=== PATIENT | female | born 1955 | race Caucasian/White ===

== ENCOUNTER 2019-06-24 22:06 | Emergency (ER) | payer MEDICARE, MEDICAID, SELFPAY ==
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
[2019-06-24 22:18] VITALS: BP 139/81; PULSE 99; RESP 16; TEMP 37; O2SAT 100
[2019-06-24] MEDS: LACTATED RINGERS 1,000 ML 999 ML IV CONT (22:34)
[2019-06-24 22:47] LABS: Eosinophils Absolute Auto 0.1 K/mm3 (0-0.3); Eosinophils Percent Auto 2.3 % (0-4.4); Hematocrit 45.6 % (37.0-47.0); Hemoglobin 14.8 g/dL (12.0-15.0); Immature Granulocyte Absolute 0.01 K/mm3 (0.00-0.031); Immature Granulocyte Percent A 0.3 % (0-0.5); Lymphocytes Percent Auto 46.3 % (18.3-44.2); Mean Corpuscular HGB Conc 32.5 g/dl (32-36); Mean Corpuscular Volume 89.2 fl (80-100); Mean Platelet Volume 8.7 fl (7.4-10.4); Monocytes Absolute Auto 0.3 K/mm3 (0.1-0.6); Monocytes Percent Auto 7.2 % (2.6-8.5); Neutrophils Absolute Auto 1.7 K/mm3 (1.3-6.7); Neutrophils Percent Auto 42.9 % (45.5-73.1); Platelet Count Result 282 k/mm3 (150-375); Red Blood Count 5.11 M/mm3 (4.2-5.4); Red Cell Distribution Width 15.8 % (11.5-14.5); White Blood Count 3.9 K/mm3 (4.5-10.0)
[2019-06-24 22:49] LABS: Add Urine Microscopic? YES; Appearance Urine Clear (Clear); Bilirubin Urine Negative (Negative); Blood Urine 1+ (Negative); Color Urine Yellow (Yellow); Glucose Urine UA Negative (Negative); Ketones Urine Negative (Negative); Leukocyte Esterase Ur Negative LEU/UL (Negative); Mucus Urine Rare /lpf; Nitrate Urine Negative (Negative); Protein Urine Negative (Negative); RBC Urine 0-2 /hpf (0-2); Specific Grav Ur 1.011 (1.001-1.035); Squamous Epithelial Cell Urine Many /hpf (Few); Urobilinogen Urine Negative mg/dL (<2.0); WBC Urine 0-3 /hpf
[2019-06-24 23:03] LABS: Alanine Aminotransferase 198 U/L (4-35); Albumin Level 4.1 g/dL (3.5-5.1); Alkaline Phosphatase 79 U/L (38-126); Aspartate Amino Transferase 328 U/L (14-36); Bilirubin,Total 0.5 mg/dL (0.2-1.3); Blood Urea Nitrogen 8 mg/dL (7-17); Calcium 7.9 mg/dL (8.4-10.2); Carbon Dioxide 25 mmol/L (22-30); Chloride 104 mmol/L (98-107); Estimated Glomerular Filt Rate > 60; Glucose 83 mg/dL (65-105); Magnesium 1.9 mg/dL (1.6-2.3); Potassium 3.8 mmol/L (3.4-5.0); Sodium 143 mmol/L (137-145)
[2019-06-24 23:05] LABS: Amphetamine Screen Urine Negative (Negative); Barbiturate Screen Urine Negative (Negative); Benzodiazepines Screen Urine Negative (Negative); Cannabinoid Screen Urine Negative (Negative); Cocaine Screen Urine Negative (Negative); Methadone Screen Urine Negative (Negative); Opiate Screen Urine Negative (Negative); Phencyclidine Screen Urine Negative (Negative)
[2019-06-24 23:15] VITALS: BP 142/76; PULSE 63; RESP 18; O2SAT 99
[2019-06-24 23:32] LABS: Ethanol 462 mg/dL (<10)
[2019-06-25 00:02] VITALS: BP 134/76; PULSE 92; RESP 20; O2SAT 98
[2019-06-25 01:02] VITALS: BP 136/79; PULSE 81; RESP 19; O2SAT 100
--- NOTE | 2019-06-25 01:58 | PC.NURSE ---
0142: Nydia called to check on patient and said she would be here within the hour to pick her up.
[2019-06-25 02:00] VITALS: BP 135/85; PULSE 85; RESP 18; TEMP 37; O2SAT 100
--- NOTE | 2019-07-01 06:09 | PC.NURSE ---
LATE ENTRY This note is being entered to document information to the patient's record. The following information was omitted on 06/24/2019, LR STOPPED AT 6710.
== END 2019-06-25 02:30 | disposition home or self-care (01) ==
PROVIDERS: Emergency Provider Emergency Medicine
DX: F10.129 Alcohol abuse with intoxication, unspecified (principal); Y90.8 Blood alcohol level of 240 mg/100 ml or more; I10 Essential (primary) hypertension; M81.0 Age-related osteoporosis without current pathological fracture; H40.9 Unspecified glaucoma; M19.90 Unspecified osteoarthritis, unspecified site; F32.9 Major depressive disorder, single episode, unspecified; F41.9 Anxiety disorder, unspecified; Z89.511 Acquired absence of right leg below knee; V49.9XXS Car occupant (driver) (passenger) injured in unspecified traffic accident, sequela
CPT/HCPCS: 36415; 51701; 80053; 80307; 81001; 83735; 85025; 96360; 99283; J7120

== ENCOUNTER 2019-06-27 01:18 | Emergency (ER) | payer MEDICARE, MEDICAID, SELFPAY ==
[2019-06-27 01:20] VITALS: BP 136/80; PULSE 92; RESP 18; TEMP 36.6; O2SAT 98
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
[2019-06-27 02:35] LABS: Basophils Absolute Auto 0.1 K/mm3 (0.0-0.1); Basophils Percent Auto 0.9 % (0.2-1.2); Eosinophils Absolute Auto 0.1 K/mm3 (0-0.3); Eosinophils Percent Auto 1.4 % (0-4.4); Hematocrit 43.7 % (37.0-47.0); Hemoglobin 14.1 g/dL (12.0-15.0); Immature Granulocyte Absolute 0.03 K/mm3 (0.00-0.031); Immature Granulocyte Percent A 0.5 % (0-0.5); Lymphocytes Absolute Auto 1.18 K/mm3 (0.9-3.2); Lymphocytes Percent Auto 17.7 % (18.3-44.2); Mean Corpuscular HGB Conc 32.3 g/dl (32-36); Mean Corpuscular Hemoglobin 28.9 pg (26-34); Mean Corpuscular Volume 89.5 fl (80-100); Mean Platelet Volume 9.2 fl (7.4-10.4); Monocytes Absolute Auto 0.5 K/mm3 (0.1-0.6); Monocytes Percent Auto 6.9 % (2.6-8.5); Neutrophils Absolute Auto 4.8 K/mm3 (1.3-6.7); Neutrophils Percent Auto 72.6 % (45.5-73.1); Platelet Count Result 246 k/mm3 (150-375); Red Blood Count 4.88 M/mm3 (4.2-5.4); Red Cell Distribution Width 15.9 % (11.5-14.5); White Blood Count 6.7 K/mm3 (4.5-10.0)
[2019-06-27] MEDS: SODIUM CHLORIDE 0.9% IV 1,000 ML 999 ML IV CONT (02:42)
[2019-06-27 02:44] VITALS: BP 127/75; PULSE 88; RESP 16; O2SAT 97
[2019-06-27 02:48] LABS: Blood Urea Nitrogen 8 mg/dL (7-17); Carbon Dioxide 28 mmol/L (22-30); Chloride 99 mmol/L (98-107); Estimated Glomerular Filt Rate > 60; Glucose 152 mg/dL (65-105); Potassium 3.3 mmol/L (3.4-5.0); Sodium 143 mmol/L (137-145)
[2019-06-27 03:02] LABS: Ethanol 481 mg/dL (<10)
--- NOTE | 2019-06-27 03:21 | PC.NURSE ---
assumed care of pt at this time, received report from mildred mitchell
[2019-06-27 04:00] VITALS: BP 118/75; PULSE 80; RESP 16; O2SAT 99
[2019-06-27 05:02] VITALS: BP 141/86; PULSE 86; RESP 16; O2SAT 99
[2019-06-27 05:32] VITALS: BP 141/79; PULSE 75; RESP 20; O2SAT 99
[2019-06-27 06:50] VITALS: BP 128/80; PULSE 70; RESP 18; O2SAT 99
--- NOTE | 2019-06-27 07:02 | PC.NURSE ---
this rn called room service for tray at this time.
[2019-06-27 15:22] LABS: Ethanol 79 mg/dL (<10)
== END 2019-06-27 16:46 | disposition home or self-care (01) ==
PROVIDERS: Emergency Medicine; Emergency Provider Emergency Medicine
DX: F10.120 Alcohol abuse with intoxication, uncomplicated (principal); Y90.8 Blood alcohol level of 240 mg/100 ml or more; Z89.511 Acquired absence of right leg below knee; V49.9XXS Car occupant (driver) (passenger) injured in unspecified traffic accident, sequela
CPT/HCPCS: 36415; 80048; 80307; 85025; 96360; 99283; J7030

== ENCOUNTER 2019-08-05 03:15 | Emergency (ER) | payer MEDICARE, SELFPAY ==
[2019-08-05] VITALS (24 sets, daily range): BP systolic 79–154; BP diastolic 41–103; PULSE 64–95; RESP 0–28; TEMP 36.6; O2SAT 98–100
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
[2019-08-05 03:56] LABS: Estimated Glomerular Filt Rate 45
[2019-08-05 03:57] LABS: Basophils Absolute Auto 0.1 K/mm3 (0.0-0.1); Basophils Percent Auto 1.2 % (0.2-1.2); Eosinophils Absolute Auto 0.1 K/mm3 (0-0.3); Eosinophils Percent Auto 1.5 % (0-4.4); Hematocrit 34.7 % (37.0-47.0); Immature Granulocyte Absolute 0.06 K/mm3 (0.00-0.031); Lymphocytes Absolute Auto 1.35 K/mm3 (0.9-3.2); Lymphocytes Percent Auto 22.5 % (18.3-44.2); Mean Corpuscular HGB Conc 31.7 g/dl (32-36); Mean Corpuscular Hemoglobin 30.5 pg (26-34); Mean Corpuscular Volume 96.1 fl (80-100); Mean Platelet Volume 10.2 fl (7.4-10.4); Monocytes Absolute Auto 0.7 K/mm3 (0.1-0.6); Monocytes Percent Auto 12.3 % (2.6-8.5); Neutrophils Absolute Auto 3.7 K/mm3 (1.3-6.7); Neutrophils Percent Auto 61.5 % (45.5-73.1); Platelet Count Result 584 k/mm3 (150-375); Red Blood Count 3.61 M/mm3 (4.2-5.4); Red Cell Distribution Width 18.1 % (11.5-14.5)
[2019-08-05 04:16] LABS: Add Urine Microscopic? NO; Appearance Urine Clear (Clear); Bilirubin Urine Negative (Negative); Blood Urine Negative (Negative); Color Urine Colorless (Yellow); Glucose Urine UA Negative (Negative); Ketones Urine Negative (Negative); Leukocyte Esterase Ur Negative LEU/UL (Negative); Nitrate Urine Negative (Negative); Protein Urine Negative (Negative); Urobilinogen Urine Negative mg/dL (<2.0)
[2019-08-05 04:23] LABS: Specific Grav Ur 1.002 (1.001-1.035)
[2019-08-05 04:30] LABS: Amphetamine Screen Urine Negative (Negative); Barbiturate Screen Urine Negative (Negative); Benzodiazepines Screen Urine Negative (Negative); Cannabinoid Screen Urine Negative (Negative); Cocaine Screen Urine Negative (Negative); Methadone Screen Urine Negative (Negative); Opiate Screen Urine Negative (Negative); Phencyclidine Screen Urine Negative (Negative)
[2019-08-05 04:32] LABS: Ethanol 390 mg/dL (<10)
[2019-08-05 04:33] LABS: INR 0.9
[2019-08-05 04:48] LABS: Alanine Aminotransferase 77 U/L (4-35); Albumin Level 3.2 g/dL (3.5-5.1); Alkaline Phosphatase 70 U/L (38-126); Aspartate Amino Transferase 113 U/L (14-36); Bilirubin,Total 0.1 mg/dL (0.2-1.3); Blood Urea Nitrogen 9 mg/dL (7-17); Calcium 8.7 mg/dL (8.4-10.2); Carbon Dioxide 25 mmol/L (22-30); Chloride 107 mmol/L (98-107); Estimated Glomerular Filt Rate > 60; Glucose 90 mg/dL (65-105); Potassium 2.7 mmol/L (3.4-5.0); Sodium 142 mmol/L (137-145)
[2019-08-05] MEDS: KCL 20 MEQ/D5/0.45% SOD CHL 1,000 ML 125 ML IV CONT (05:32)
[2019-08-05] MEDS: SODIUM CHLORIDE 0.9% IV 1,000 ML 999 ML IV CONT (05:42)
--- NOTE | 2019-08-05 09:15 | PC.NURSE ---
Thiamine IVF opened wide per verbal order Dr. Causey.
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
== END 2019-08-05 11:43 | disposition home or self-care (01) ==
PROVIDERS: Emergency Medicine; Emergency Provider Emergency Medicine
DX: F10.129 Alcohol abuse with intoxication, unspecified (principal); S22.32XA Fracture of one rib, left side, initial encounter for closed fracture; M19.90 Unspecified osteoarthritis, unspecified site; G89.4 Chronic pain syndrome; H40.9 Unspecified glaucoma; I10 Essential (primary) hypertension; M81.0 Age-related osteoporosis without current pathological fracture; Z89.511 Acquired absence of right leg below knee; Y90.8 Blood alcohol level of 240 mg/100 ml or more; Y00.XXXA Assault by blunt object, initial encounter
CPT/HCPCS: 36415; 51701; 70450; 70486; 71260; 72125; 80053; 80307; 81003; 85025; 85610; 85730; 96365; 96366; 96368; 99284; J3411; J3475; J3480; J7030; J7042; Q9967

== ENCOUNTER 2019-08-30 18:38 | Emergency (ER) | payer MEDICARE, SELFPAY ==
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
[2019-08-30 18:42] VITALS: BP 175/87; PULSE 102; RESP 22; TEMP 36.6; O2SAT 99
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
[2019-08-30] MEDS: MORPHINE SULFATE 4 MG/ML INJ IV PUSH ×2 (19:27→20:42)
[2019-08-30] MEDS: SODIUM CHLORIDE 0.9% IV 1,000 ML 999 ML IV CONT (19:27)
[2019-08-30 19:30] LABS: Basophils Absolute Auto 0.1 K/mm3 (0.0-0.1); Basophils Percent Auto 0.6 % (0.2-1.2); Eosinophils Absolute Auto 0.1 K/mm3 (0-0.3); Eosinophils Percent Auto 0.4 % (0-4.4); Hematocrit 33.8 % (37.0-47.0); Hemoglobin 10.3 g/dL (12.0-15.0); Immature Granulocyte Absolute 0.07 K/mm3 (0.00-0.031); Immature Granulocyte Percent A 0.5 % (0-0.5); Lymphocytes Absolute Auto 1.12 K/mm3 (0.9-3.2); Lymphocytes Percent Auto 7.6 % (18.3-44.2); Mean Corpuscular HGB Conc 30.5 g/dl (32-36); Mean Corpuscular Hemoglobin 26.8 pg (26-34); Mean Platelet Volume 10.2 fl (7.4-10.4); Monocytes Absolute Auto 1.4 K/mm3 (0.1-0.6); Monocytes Percent Auto 9.5 % (2.6-8.5); Neutrophils Percent Auto 81.4 % (45.5-73.1); Platelet Count Result 573 k/mm3 (150-375); Red Blood Count 3.84 M/mm3 (4.2-5.4); Red Cell Distribution Width 17.3 % (11.5-14.5); White Blood Count 14.7 K/mm3 (4.5-10.0)
[2019-08-30 19:59] LABS: Add Urine Microscopic? YES; Appearance Urine Clear (Clear); Bacteria Urine 1+ /hpf; Bilirubin Urine Negative (Negative); Blood Urine 1+ (Negative); Color Urine Straw (Yellow); Glucose Urine UA Negative (Negative); Ketones Urine Negative (Negative); Leukocyte Esterase Ur Negative LEU/UL (Negative); Nitrate Urine Negative (Negative); Protein Urine Negative (Negative); RBC Urine 0-2 /hpf (0-2); Specific Grav Ur 1.005 (1.001-1.035); Urobilinogen Urine Negative mg/dL (<2.0)
[2019-08-30 20:13] LABS: Amphetamine Screen Urine Negative (Negative); Barbiturate Screen Urine Negative (Negative); Benzodiazepines Screen Urine Negative (Negative); Cannabinoid Screen Urine Negative (Negative); Cocaine Screen Urine Negative (Negative); Methadone Screen Urine Negative (Negative); Opiate Screen Urine Positive (Negative); Phencyclidine Screen Urine Negative (Negative)
[2019-08-30 20:33] LABS: Alanine Aminotransferase 22 U/L (4-35); Albumin Level 3.8 g/dL (3.5-5.1); Alkaline Phosphatase 77 U/L (38-126); Aspartate Amino Transferase 50 U/L (14-36); Bilirubin,Total 0.6 mg/dL (0.2-1.3); Blood Urea Nitrogen 6 mg/dL (7-17); Calcium 9.2 mg/dL (8.4-10.2); Carbon Dioxide 24 mmol/L (22-30); Chloride 109 mmol/L (98-107); Estimated CRCL calculation 70 ml/min; Estimated Glomerular Filt Rate > 60; Glucose 97 mg/dL (65-105); Potassium 3.8 mmol/L (3.4-5.0); Sodium 141 mmol/L (137-145)
[2019-08-30 20:35] VITALS: BP 166/70; PULSE 107; RESP 21; O2SAT 94
[2019-08-30 22:44] VITALS: BP 164/93; PULSE 114; RESP 20; O2SAT 99
== END 2019-08-30 22:46 | disposition home or self-care (01) ==
PROVIDERS: Emergency Provider Emergency Medicine
DX: S42.022A Displaced fracture of shaft of left clavicle, initial encounter for closed fracture (principal); K04.7 Periapical abscess without sinus; S00.83XA Contusion of other part of head, initial encounter; S00.12XA Contusion of left eyelid and periocular area, initial encounter; S00.11XA Contusion of right eyelid and periocular area, initial encounter; S00.531A Contusion of lip, initial encounter; Z89.511 Acquired absence of right leg below knee; M47.812 Spondylosis without myelopathy or radiculopathy, cervical region; Y04.2XXA Assault by strike against or bumped into by another person, initial encounter; Y00.XXXA Assault by blunt object, initial encounter
CPT/HCPCS: 36415; 51701; 70450; 70486; 71045; 72125; 80053; 80307; 81001; 84484; 85025; 87804; 96361; 96374; 96376; 99284; A4565; A9270; J2270; J7030

== ENCOUNTER 2020-04-19 15:46 | Inpatient (IN) | payer MEDICARE, MEDICAID, SELFPAY ==
--- NOTE | ~2020-04-19 | XR_ITS ---
EXAMINATION: XR surgery orthopedic INDICATION: ORIF of the left ankle TECHNIQUE: Seven intraoperative fluoroscopic images are submitted for review. Total fluoroscopic time is 107.2 seconds. COMPARISON: Left ankle radiograph dated 04/19/2020 FINDINGS: Fluoroscopic images demonstrate screw fixation of the medial malleolus and plate and screw fixation of the distal fibula. Alignment is anatomic. Please refer to procedure note for full details . IMPRESSION: 1. ORIF of the left ankle. Please refer to procedure note for full details. Reviewed, dictated and finalized at location A. ING ANALYST
--- NOTE | ~2020-04-19 | XR_ITS ---
EXAMINATION: XR knee LT min 4V DATE: 04/19/2020 17:30 INDICATION: Left knee pain TECHNIQUE: Four views of the left knee were obtained. COMPARISON: None. FINDINGS: Alignment is normal. No fracture or osteochondral lesion. There is mild tricompartmental os teoarthritis characterized by tiny marginal osteophytes. A small knee joint effusion is present. Soft tissues are unremarkable. IMPRESSION: 1. Small knee joint effusion without evidence of acute osseous abnormality. Reviewed, dictated and finalized at location A. OR'S ASSISTANT
--- NOTE | ~2020-04-19 | XR_ITS ---
EXAMINATION: XR ankle LT min 3V DATE: 04/19/2020 17:30 INDICATION: Left ankle pain, initial encounter TECHNIQUE: Anteroposterior, lateral, mortise, and additional oblique view of the ankle were obtained. COMPARISON: None. FINDINGS: There is an acute, traumatic, oblique fracture of the distal fibula extending to the level of the tibial plafond. There is a transverse fracture of the medial malleolus at the level of the tib ial plafond. An avulsion is noted at the tip of the lateral malleolus. The talus and distal fibular f racture fragment demonstrates approximately 9 mm of lateral subluxation with respect to the distal ti onelia. No additional fracture is identified. Ankle soft tissue swelling is present. IMPRESSION: 1. Fractures of the distal tibia and fibula as detailed above with tibiotalar subluxation. Reviewed, dictated and finalized at location A. COPY EXAMINER IMPRESSION: 1. Fractures of the distal tibia and fibula as detailed above with tibiotalar s ubluxation.
[2020-04-19 15:57] VITALS: BP 133/64; PULSE 83; RESP 17; TEMP 35.9; O2SAT 100
[2020-04-19] MEDS: HYDROcodone/acetaminophen (*CRX) 5-325 MG TABLET 1 TAB PO (18:35)
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
[2020-04-19 20:58] LABS: Mean Platelet Volume 10.2 fl (7.4-10.4); Platelet Count Result 288 k/mm3 (150-375)
--- NOTE | 2020-04-19 21:23 | ADMGEN ---
This patient, Jenna Coles, was admitted to 2 Medical Room 240-01. Patient/family oriented to hospital policies and general routines including ID bracelet, bed and alarms, visiting hours, pain management, procedures, bathroom and other care routines, personal items, smoking policy, room service/diet, and visiting hours. Information on how to activate the Rapid Response Team has been discussed. Patient/Family are encouraged to report perceived risks to care and to ask questions if they do not understand what they are told or what they should do.
[2020-04-19] MEDS: SODIUM CHLORIDE 0.45% 1,000 ML 100 ML IV CONT (21:29)
[2020-04-19] MEDS: ENOXAPARIN 40 MG/0.4 ML SYRINGE SUB-Q (21:34)
[2020-04-19 21:36] VITALS: BMI 22.1
[2020-04-19 21:37] VITALS: BP 118/66; PULSE 78; RESP 20; TEMP 36.5; O2SAT 96
[2020-04-19 21:43] VITALS: BP 118/66; PULSE 78; RESP 20; TEMP 36.6; O2SAT 96
[2020-04-19] MEDS: MORPHINE SULFATE (*CRX) 2 MG/ML INJ IV PUSH (21:57)
[2020-04-20] VITALS (7 sets, daily range): BP systolic 92–110; BP diastolic 42–62; PULSE 64–70; RESP 18; TEMP 36.6–37.4; O2SAT 95–99
[2020-04-20] MEDS: DORZOLAMIDE HCL 2% OPHTH DROPS 1 DROP EACH EYE ×3 (00:44→20:04)
[2020-04-20] MEDS: LATANOPROST 0.005% OP SOLN 2.5 ML BTL 1 DROP RIGHT EYE ×2 (00:47→20:04)
[2020-04-20] MEDS: MORPHINE SULFATE (*CRX) 2 MG/ML INJ IV PUSH (02:10)
[2020-04-20] MEDS: HYDROcodone/acetaminophen (*CRX) 5-325 MG TABLET 1 TAB PO ×2 (03:21→07:13)
[2020-04-20 05:07] LABS: Basophils Absolute Auto 0.1 K/mm3 (0.0-0.1); Basophils Percent Auto 0.9 % (0.2-1.2); Eosinophils Absolute Auto 0.2 K/mm3 (0-0.3); Eosinophils Percent Auto 2.1 % (0-4.4); Hemoglobin 12.8 g/dL (12.0-15.0); Immature Granulocyte Absolute 0.02 K/mm3 (0.00-0.031); Immature Granulocyte Percent A 0.3 % (0-0.5); Lymphocytes Absolute Auto 3.27 K/mm3 (0.9-3.2); Mean Corpuscular HGB Conc 33.7 g/dl (32-36); Mean Corpuscular Hemoglobin 28.9 pg (26-34); Mean Corpuscular Volume 85.8 fl (80-100); Mean Platelet Volume 10.5 fl (7.4-10.4); Monocytes Absolute Auto 0.7 K/mm3 (0.1-0.6); Monocytes Percent Auto 9.5 % (2.6-8.5); Neutrophils Absolute Auto 3.4 K/mm3 (1.3-6.7); Neutrophils Percent Auto 44.2 % (45.5-73.1); Platelet Count Result 250 k/mm3 (150-375); Red Blood Count 4.43 M/mm3 (4.2-5.4); Red Cell Distribution Width 13.3 % (11.5-14.5); White Blood Count 7.6 K/mm3 (4.5-10.0)
[2020-04-20 05:22] LABS: Anion Gap 4 mmol/L (8-16); Blood Urea Nitrogen 12 mg/dL (7-17); Calcium 8.5 mg/dL (8.4-10.2); Carbon Dioxide 26 mmol/L (22-30); Chloride 106 mmol/L (98-107); Estimated CRCL calculation 53 ml/min; Estimated Glomerular Filt Rate > 60; Glucose 87 mg/dL (65-105); Potassium 3.5 mmol/L (3.4-5.0); Sodium 136 mmol/L (137-145)
[2020-04-20] MEDS: SODIUM CHLORIDE 0.45% 1,000 ML 100 ML IV CONT ×2 (07:08→17:53)
[2020-04-20] MEDS: FLUTICASONE PROPIONATE 0.05% NA SPR 16 GM BTL (*BKC) 1 SPRAY NASAL (08:42)
[2020-04-20] MEDS: FLUoxetine HCL 20 MG CAPSULE 40 MG PO (08:42)
[2020-04-20] MEDS: lisinopriL 20 MG TABLET PO (08:43)
[2020-04-20] MEDS: MORPHINE SULFATE (*CRX) 2 MG/ML INJ 1 MG IV PUSH (09:23)
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
[2020-04-20] MEDS: oxyCODONE/ACETAMINOPHEN (*CRX) 5-325 MG TABLET 2 TABLET PO (12:20)
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
[2020-04-20] MEDS: oxyCODONE/ACETAMINOPHEN (*CRX) 5-325 MG TABLET 1 TABLET PO ×2 (18:54→23:12)
[2020-04-20] MEDS: ENOXAPARIN 40 MG/0.4 ML SYRINGE SUB-Q (20:04)
[2020-04-21] MEDS: SODIUM CHLORIDE 0.45% 1,000 ML 100 ML IV CONT (03:04)
[2020-04-21] MEDS: oxyCODONE/ACETAMINOPHEN (*CRX) 5-325 MG TABLET 1 TABLET PO ×5 (03:09→21:58)
[2020-04-21 05:18] VITALS: BP 90/62; PULSE 61; RESP 18; TEMP 36.5; O2SAT 97
[2020-04-21 05:40] LABS: Hematocrit 34.4 % (37.0-47.0); Hemoglobin 11.4 g/dL (12.0-15.0); Mean Corpuscular HGB Conc 33.1 g/dl (32-36); Mean Corpuscular Hemoglobin 28.3 pg (26-34); Mean Corpuscular Volume 85.4 fl (80-100); Platelet Count Result 239 k/mm3 (150-375); Red Blood Count 4.03 M/mm3 (4.2-5.4); Red Cell Distribution Width 13.4 % (11.5-14.5); White Blood Count 7.9 K/mm3 (4.5-10.0)
[2020-04-21 05:47] LABS: Anion Gap 4 mmol/L (8-16); Blood Urea Nitrogen 10 mg/dL (7-17); Calcium 8.5 mg/dL (8.4-10.2); Carbon Dioxide 25 mmol/L (22-30); Chloride 107 mmol/L (98-107); Estimated CRCL calculation 53 ml/min; Estimated Glomerular Filt Rate > 60; Glucose 101 mg/dL (65-105); Potassium 3.4 mmol/L (3.4-5.0); Sodium 136 mmol/L (137-145)
[2020-04-21] MEDS: DORZOLAMIDE HCL 2% OPHTH DROPS 1 DROP EACH EYE ×2 (08:36→20:26)
[2020-04-21] MEDS: THERAPEUTIC MULTIVITAMINS/MINERALS TAB (*BKC) 1 TABLET PO (08:37)
[2020-04-21] MEDS: LORATADINE 10 MG TABLET PO (08:37)
[2020-04-21] MEDS: FLUoxetine HCL 20 MG CAPSULE 40 MG PO (08:37)
[2020-04-21] MEDS: FLUTICASONE PROPIONATE 0.05% NA SPR 16 GM BTL (*BKC) 1 SPRAY NASAL (08:38)
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
[2020-04-21] MEDS: polyethylene glycoL 3350 17 GM POWD.PACK PO (12:54)
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
[2020-04-21 14:00] VITALS: BP 106/60; PULSE 64; RESP 16; TEMP 37; O2SAT 100
[2020-04-21] MEDS: LATANOPROST 0.005% OP SOLN 2.5 ML BTL 1 DROP RIGHT EYE (20:25)
[2020-04-21] MEDS: DOCUSATE SODIUM 100 MG CAPSULE PO (20:26)
[2020-04-21] MEDS: ENOXAPARIN 40 MG/0.4 ML SYRINGE SUB-Q (20:26)
[2020-04-21 20:37] VITALS: BP 116/51; PULSE 74; RESP 20; TEMP 36.2; O2SAT 96
[2020-04-22] VITALS (15 sets, daily range): BP systolic 94–147; BP diastolic 57–86; PULSE 60–87; RESP 14–18; TEMP 36.3–37; O2SAT 94–100
[2020-04-22 05:46] LABS: Hematocrit 34.7 % (37.0-47.0); Hemoglobin 11.5 g/dL (12.0-15.0); Mean Corpuscular HGB Conc 33.1 g/dl (32-36); Mean Corpuscular Hemoglobin 28.2 pg (26-34); Mean Platelet Volume 11.3 fl (7.4-10.4); Platelet Count Result 220 k/mm3 (150-375); Red Blood Count 4.08 M/mm3 (4.2-5.4); Red Cell Distribution Width 13.4 % (11.5-14.5); White Blood Count 7.3 K/mm3 (4.5-10.0)
[2020-04-22 05:49] LABS: Anion Gap 5 mmol/L (8-16); Blood Urea Nitrogen 9 mg/dL (7-17); Calcium 8.7 mg/dL (8.4-10.2); Carbon Dioxide 26 mmol/L (22-30); Chloride 107 mmol/L (98-107); Estimated CRCL calculation 53 ml/min; Estimated Glomerular Filt Rate > 60; Glucose 91 mg/dL (65-105); Potassium 3.6 mmol/L (3.4-5.0); Sodium 138 mmol/L (137-145)
[2020-04-22] MEDS: oxyCODONE/ACETAMINOPHEN (*CRX) 5-325 MG TABLET 1 TABLET PO (05:50)
[2020-04-22] MEDS: FLUTICASONE PROPIONATE 0.05% NA SPR 16 GM BTL (*BKC) 1 SPRAY NASAL (08:48)
[2020-04-22] MEDS: DORZOLAMIDE HCL 2% OPHTH DROPS 1 DROP EACH EYE ×2 (08:48→20:12)
--- NOTE | 2020-04-22 09:28 | PM.PNORT ---
Progress Note: A&P Assessment and Plan (1) Bimalleolar ankle fracture: Qualifiers: Encounter type: initial encounter Fracture type: closed Laterality: left Qualified Code(s): S82.842A - Displaced bimalleolar fracture of left lower leg, initial encounter for closed fracture Code(s): S82.843A - Displaced bimalleolar fracture of unspecified lower leg, initial encounter for closed fracture Status: Acute (2) Grade 2 sprain of medial collateral ligament of left knee: Code(s): S83.412A - Sprain of medial collateral ligament of left knee, initial encounter Status: Acute (3) History of right below knee amputation: Code(s): Z89.511 - Acquired absence of right leg below knee Status: Chronic Assessment and Plan: ORIF of bimalleolar ankle fracture scheduled for today. We discussed the risks, benefits, and alternatives to surgery. All questions answered and concerns addressed. She will be toe-touch weight-bearing for balance only. Depending on the rigidity of the surgical construct, she may be able to go home postoperatively. She mentioned that she would be going home with her daughter and her daughter or grandchildren would be home to help her. Alternatively she may benefit from a short stay in rehab. The MCL will benefit from a short hinged brace. We discussed the risks of fracture displacement, wound healing complications, and late arthritis. Certainly this has significant implications due to the contralateral below-knee amputation. Subjective Subjective Date/Time Seen: 04/22/20 09:28 Pleasant 65 year old female with history of Right BKA, HTN, and depression was admitted to the hospital 04/19/2020 after falling down the stairs of her deck outside. She states she twisted her ankle as she fell. She had immediate pain and was unable to ambulate. She was wearing her prosthetic leg on the right when she fell. She notes an abrasion on her left forearm, medial knee pain, and sharp, shooting left ankle pain. Pain radiates up and down her right leg. Pain is rated at a 4/10 and intermittent. Controlled with pain medication. Xray films of her left ankle demonstrated bimalleolar ankle fracture. No numbness or tingling distally. She denies any head trauma or loss of consciousness. She denies nausea, vomiting, shortness of breath, chest pain, abdominal pain, diarrhea or constipation. Review of Systems Review of Systems: All systems reviewed & are unremarkable except as noted in HPI and below Eyes: Comments: She notes recent surgery on her left eye. Cardiovascular: Cardiovascular: Denies chest pain and Denies dyspnea Respiratory: Respiratory: Denies dyspnea Gastrointestinal: Gastrointestinal: Denies abdominal pain, Denies constipation, Denies diarrhea, Denies nausea and Denies vomiting Integumentary/Breasts: Skin/Breast: Reports dry skin Exam Const: General: cooperative, healthy appearing, comfortable and no acute distress Nutritional Appearance: average body habitus Orientation/consciousness: No patient oriented x3 Eyes: General: appearance normal, both eyes and all related structures Resp: Effort & Inspection: normal respiratory effort and able to speak in complete sentences GI: GI Palp: No abdominal tenderness Urinary Catheter: Urinary Catheter: patent and draining Skin: Other: abrasion covered by bandage on left forearm Neuro: General: patient oriented x3 Extrem: Other: Right BKA with healthy appearing stump. Left lower leg in short leg splint. Tenderness to palpation. Knee has mild chronic scars. The MCL is tender. Range of motion 0-130 degrees with mild discomfort at deep flexion. Trace effusion. Extensor mechanism intact. The MCL has a firm endpoint with mild pain with valgus stress. Calf nontender. Patient able to wiggle toes. Light touch sensation intact. Normal capillary refill distally. No edema. Psych: Appearance: grossly normal Objective Data Vital Signs Vital Sign
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
--- NOTE | 2020-04-22 11:05 | PC.NURSE ---
Patient to OR per bed.
[2020-04-22] MEDS: LACTATED RINGERS 1,000 ML 30 ML IV CONT ×2 (11:24→15:18)
--- NOTE | 2020-04-22 12:23 | WPDHPUPDATE1 ---
History and Physical Update Update Date/Time: 04/22/20 12:23 History and Physical has been reviewed, including an updated exam of the patient. There are NO changes in the patient's condition. Risks, benefits, and alternatives have been discussed and questions answered. Patient agrees to proceed with procedure.
[2020-04-22] MEDS: ceFAZolin 2 GM/D5W 50 ML 2 GM/50 ML BAG IVPB ×2 (12:40→20:11)
[2020-04-22] MEDS: fentaNYL CITRATE INJ (*CRX) 100 MCG/2 ML VIAL 25 MCG IV PUSH ×4 (15:28→15:54)
--- NOTE | 2020-04-22 15:46 | PM.PROC ---
Procedure Note - Detailed Date of procedure: 04/22/20 Pre-op diagnosis: left bimalleolar fracture Post-op diagnosis: same Procedure performed: ORIF bimalleolar ankle fracture. Implants: Synthes 1/3 tubular plate. 4.0 mm partially threaded cannulated screws, 46mm x 2. Anesthesia: GETA Surgeon: Stephen Crawley MD Call Or Contact Centre Coach: Laura Zendejas PA-C Estimated blood loss (mL): 50 Drains: No Complications: None Condition: stable Disposition: PACU Findings: Physician certified teacher assistant required for surgery; including patient positioning, draping, tissue retraction, maintaining instrument position, maintenance of fracture reduction, wound closure, and dressing placement. A general anesthetic was administered. The limb was prepped and draped in the usual sterile fashion with a well-padded tourniquet high on the thigh. A bump was placed under the hip. The limb was exsanguinated and the tourniquet inflated to 275 millimeters of mercury during the procedure. A longitudinal incision was created at the distal fibula. Careful dissection was carried down to bone. Perineal nerve branches were protected. The fracture was carefully exposed. Callus and debris was irrigated from the wound. The fracture was brought out to length. Reduction was accomplished with the reduction forceps. The fixation plate was contoured. Fixation was performed with a combination of cortical, cancellous, and locking screws. Fluoroscopy was used throughout the procedure to confirm anatomic reduction and appropriate placement of the implants. The Cotton test was used on the syndesmosis. It was completely stable. The medial malleolus was exposed with a longitudinal incision. The fracture was cleared of debris and irrigated. Anatomic reduction was obtained with the reduction tool. Biplanar fluoroscopy was used to assess the fracture reduction and guide placement of the K-wire. Two K-wires were placed parallel across the fracture site. The screw lengths were measured and drilled distally only. The long, partially threaded screws were placed, and the K-wires removed. The tourniquet was released. Meticulous hemostasis was obtained. Wound was closed in layers with 2-0 Vicryl suture 3-0 Monocryl suture and nia. A sterile splint with padding was applied. The patient was extubated and brought to the recovery room in stable condition. There were no complications.
[2020-04-22] MEDS: HYDROmorphone HCL INJ (*CRX) 1 MG/ML SYR 0.25 MG IV PUSH ×6 (15:59→16:35)
--- NOTE | 2020-04-22 17:10 | PC.NURSE ---
Return from OR per bed.
[2020-04-22] MEDS: THERAPEUTIC MULTIVITAMINS/MINERALS TAB (*BKC) 1 TABLET PO (17:16)
[2020-04-22] MEDS: LORATADINE 10 MG TABLET PO (17:16)
[2020-04-22] MEDS: FLUoxetine HCL 20 MG CAPSULE 40 MG PO (17:16)
[2020-04-22] MEDS: polyethylene glycoL 3350 17 GM POWD.PACK PO (17:17)
[2020-04-22] MEDS: SODIUM CHLORIDE 0.9% IV 1,000 ML 125 ML IV CONT (17:28)
[2020-04-22] MEDS: ENOXAPARIN 40 MG/0.4 ML SYRINGE SUB-Q (20:12)
[2020-04-22] MEDS: LATANOPROST 0.005% OP SOLN 2.5 ML BTL 1 DROP RIGHT EYE (20:12)
[2020-04-22] MEDS: oxyCODONE/ACETAMINOPHEN (*CRX) 5-325 MG TABLET 2 TABLET PO (20:14)
[2020-04-23] MEDS: oxyCODONE/ACETAMINOPHEN (*CRX) 5-325 MG TABLET 2 TABLET PO ×6 (01:38→22:50)
[2020-04-23 02:30] VITALS: BP 147/90; PULSE 62; RESP 16; TEMP 36.3; O2SAT 99
[2020-04-23] MEDS: ceFAZolin 2 GM/D5W 50 ML 2 GM/50 ML BAG IVPB ×2 (05:00→12:12)
[2020-04-23 06:07] VITALS: BP 107/62; PULSE 70; RESP 16; TEMP 36.4; O2SAT 95
[2020-04-23 06:21] LABS: Hematocrit 33.6 % (37.0-47.0); Hemoglobin 10.8 g/dL (12.0-15.0); Mean Corpuscular HGB Conc 32.1 g/dl (32-36); Mean Corpuscular Hemoglobin 28.4 pg (26-34); Mean Corpuscular Volume 88.4 fl (80-100); Mean Platelet Volume 11.5 fl (7.4-10.4); Platelet Count Result 202 k/mm3 (150-375); Red Cell Distribution Width 13.4 % (11.5-14.5); White Blood Count 9.3 K/mm3 (4.5-10.0)
[2020-04-23 06:34] LABS: Anion Gap 5 mmol/L (8-16); Blood Urea Nitrogen 8 mg/dL (7-17); Calcium 8.5 mg/dL (8.4-10.2); Carbon Dioxide 27 mmol/L (22-30); Chloride 106 mmol/L (98-107); Estimated CRCL calculation 60 ml/min; Estimated Glomerular Filt Rate > 60; Glucose 83 mg/dL (65-105); Sodium 138 mmol/L (137-145)
[2020-04-23] MEDS: FLUoxetine HCL 20 MG CAPSULE 40 MG PO (09:56)
[2020-04-23] MEDS: DOCUSATE SODIUM 100 MG CAPSULE PO ×2 (09:56→17:18)
[2020-04-23] MEDS: FLUTICASONE PROPIONATE 0.05% NA SPR 16 GM BTL (*BKC) 1 SPRAY NASAL (09:57)
[2020-04-23] MEDS: LORATADINE 10 MG TABLET PO (09:57)
[2020-04-23] MEDS: THERAPEUTIC MULTIVITAMINS/MINERALS TAB (*BKC) 1 TABLET PO (09:57)
[2020-04-23] MEDS: DORZOLAMIDE HCL 2% OPHTH DROPS 1 DROP EACH EYE ×2 (09:57→20:51)
[2020-04-23] MEDS: polyethylene glycoL 3350 17 GM POWD.PACK PO (10:29)
[2020-04-23 10:30] VITALS: BP 117/72; PULSE 68; RESP 14; TEMP 36.9; O2SAT 100
[2020-04-23 14:00] VITALS: BP 117/59; PULSE 69; RESP 18; TEMP 36.8; O2SAT 99
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
[2020-04-23 18:30] VITALS: BP 106/61; PULSE 70; RESP 16; TEMP 36.7; O2SAT 98
[2020-04-23] MEDS: ENOXAPARIN 40 MG/0.4 ML SYRINGE SUB-Q (20:51)
[2020-04-23] MEDS: LATANOPROST 0.005% OP SOLN 2.5 ML BTL 1 DROP RIGHT EYE (20:51)
[2020-04-23 22:00] VITALS: BP 116/67; PULSE 100; RESP 16; TEMP 36.9; O2SAT 94
[2020-04-24 01:00] VITALS: BP 113/63; PULSE 62; RESP 16; TEMP 36.3; O2SAT 96
[2020-04-24] MEDS: oxyCODONE/ACETAMINOPHEN (*CRX) 5-325 MG TABLET 2 TABLET PO ×3 (04:00→14:38)
[2020-04-24 06:29] VITALS: BP 117/59; PULSE 62; RESP 16; TEMP 36.4; O2SAT 97
[2020-04-24] MEDS: DOCUSATE SODIUM 100 MG CAPSULE PO (09:34)
[2020-04-24] MEDS: LORATADINE 10 MG TABLET PO (09:34)
[2020-04-24] MEDS: DORZOLAMIDE HCL 2% OPHTH DROPS 1 DROP EACH EYE (09:34)
[2020-04-24] MEDS: FLUTICASONE PROPIONATE 0.05% NA SPR 16 GM BTL (*BKC) 1 SPRAY NASAL (09:34)
[2020-04-24] MEDS: FLUoxetine HCL 20 MG CAPSULE 40 MG PO (09:34)
[2020-04-24] MEDS: lisinopriL 20 MG TABLET PO (09:34)
[2020-04-24] MEDS: THERAPEUTIC MULTIVITAMINS/MINERALS TAB (*BKC) 1 TABLET PO (09:34)
[2020-04-24] MEDS: MAGNESIUM HYDROXIDE SUSP 30 ML UDC PO (09:35)
[2020-04-24] MEDS: polyethylene glycoL 3350 17 GM POWD.PACK PO (09:35)
[2020-04-24 10:00] VITALS: BP 123/63; PULSE 76; RESP 16; TEMP 37.1; O2SAT 98
--- NOTE | 2020-04-24 12:06 | PM.PNORT ---
Progress Note: A&P Assessment and Plan (1) Bimalleolar ankle fracture: Qualifiers: Encounter type: initial encounter Fracture type: closed Laterality: left Qualified Code(s): S82.842A - Displaced bimalleolar fracture of left lower leg, initial encounter for closed fracture Code(s): S82.843A - Displaced bimalleolar fracture of unspecified lower leg, initial encounter for closed fracture Status: Acute Assessment and Plan: Doing well after ORIF. Mobile and safe with transfers on the right side prosthesis. Able to maintain non weight bearing. Ok to discharge home. Questions answered. Discussed osteoporosis treatment. Subjective Subjective Date/Time Seen: 04/24/20 12:06 Interval history: Pain well controlled. No complaints. Exam Narrative: Exam Narrative: Splint dry and intact. NVI. Alert. Afebrile. Vitals stable. Objective Data Vital Signs Vital Signs: Vital Signs - 24 hr 04/23/20 14:00 04/23/20 18:30 04/23/20 22:00 Temperature 36.8 C 36.7 C 36.9 C Pulse Rate 69 70 100 Respiratory Rate 18 16 16 Blood Pressure 117/59 L 106/61 116/67 Pulse Oximetry 99 98 94 04/24/20 01:00 04/24/20 06:29 04/24/20 10:00 Temperature 36.3 C L 36.4 C 37.1 C Pulse Rate 62 62 76 Respiratory Rate 16 16 16 Blood Pressure 113/63 117/59 L 123/63 Pulse Oximetry 96 97 98 Intake/Output Intake/Output: Intake & Output 04/21/20 04/22/20 04/23/20 04/24/20 23:59 23:59 23:59 23:59 Intake Total 4790 790 2190 920 Output Total 4700 1540 4700 1750 Balance 90 -750 -2510 -830 Meds/Results Medications: Active Medications Generic Name Dose Route Start Last Admin Trade Name Freq PRN Reason Stop Dose Admin Acetaminophen 650 mg 04/19/20 19:41 Acetaminophen 325 Mg Tablet PO Q4H PRN Mild Pain (1-3) or Fever Docusate Sodium 100 mg 04/22/20 17:00 04/24/20 09:34 Docusate Sodium 100 Mg Capsule PO 100 mg BID GISSELL Administration Dorzolamide HCl 1 drop 04/20/20 00:35 04/24/20 09:34 Dorzolamide Hcl 2% Ophth Drops EACH EYE 1 drop Q12HR GISSELL Administration Enoxaparin Sodium 40 mg 04/19/20 21:00 04/23/20 20:51 Enoxaparin 40 Mg/0.4 Ml Syringe SUB-Q 40 mg Q24H GISSELL Administration Fluoxetine HCl 40 mg 04/20/20 09:00 04/24/20 09:34 Fluoxetine Hcl 20 Mg Capsule PO 40 mg QAM GISSELL Administration Fluticasone Propionate 1 spray 04/20/20 09:00 04/24/20 09:34 Fluticasone Propionate 0.05% Na Spr 16 Gm Btl (*Bkc) NASAL 1 spray DAILY GISSELL Administration Hydromorphone HCl 0.5 mg 04/22/20 16:45 Hydromorphone Hcl Inj (*Crx) 1 Mg/Ml Syr IV PUSH Q3H PRN Pain 10 breakthrough pain only Latanoprost 1 drop 04/20/20 00:35 04/23/20 20:51 Latanoprost 0.005% Op Soln 2.5 Ml Btl RIGHT EYE 1 drop HS GISSELL Administration Lisinopril 20 mg 04/20/20 09:00 04/24/20 09:34 Lisinopril 20 Mg Tablet PO 20 mg DAILY GISSELL Administration Loratadine 10 mg 04/20/20 09:00 04/24/20 09:34 Loratadine 10 Mg Tablet PO 10 mg QAM GISSELL Administration Magnesium Hydroxide 30 ml 04/22/20 16:45 04/24/20 09:35 Magnesium Hydroxide Susp 30 Ml Udc PO 30 ml BID PRN Administration Constipation Multivitamins/Calcium 1 tablet 04/20/20 09:00 04/24/20 09:34 Therapeutic Multivitamins/Minerals Tab (*Bkc) PO 1 tablet DAILY GISSELL Administration Ondansetron HCl 4 mg 04/22/20 16:45 Ondansetron Inj 4 Mg/2 Ml Vial IV PUSH Q4H PRN Nausea And Vomiting Oxycodone/Acetaminophen 1 tablet 04/20/20 11:48 04/22/20 05:50 Oxycodone/Acetaminophen (*Crx) 5-325 Mg Tablet PO 1 tablet Q4H PRN Administration Pain Rated 4-6 Oxycodone/Acetaminophen 2 tablet 04/20/20 11:48 04/24/20 09:40 Oxycodone/Acetaminophen (*Crx) 5-325 Mg Tablet PO 2 tablet Q4H PRN Administration Pain Rated 7-10 Polyethylene Glycol 17 gm 04/21/20 11:55 04/24/20 09:35 Polyethylene Glycol 3350 17 Gm Powd.Pack PO 17 gm QAM [facility] Administra
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
[2020-04-24 14:00] VITALS: BP 118/79; PULSE 86; RESP 14; TEMP 36.7; O2SAT 98
== END 2020-04-24 15:05 | disposition home health service (06) | DRG 494 ==
LOC: ANHED 18:52 → ANH2MED 19:54
PROVIDERS: Orthopaedic Surgery; Physician Assistant; Admitting Provider Family Medicine; Emergency Provider Emergency Medicine; PCP Nurse Practitioner; Visit Provider Internal Medicine
PROC: 0QSH04Z Reposition Left Tibia with Internal Fixation Device, Open Approach (ICD-10-PCS; principal; 2020-04-22 12:30)
DX: S82.842A Displaced bimalleolar fracture of left lower leg, initial encounter for closed fracture (principal); W10.9XXA Fall (on) (from) unspecified stairs and steps, initial encounter; I10 Essential (primary) hypertension; Z89.511 Acquired absence of right leg below knee; F32.9 Major depressive disorder, single episode, unspecified; H40.9 Unspecified glaucoma; S83.412A Sprain of medial collateral ligament of left knee, initial encounter; Z23 Encounter for immunization
CPT/HCPCS: 29515; 36415; 51702; 73564; 73610; 80048; 82306; 85025; 85027; 85049; 90471; 90653; 96361; 96372; 96374; 96376; 97116; 97162; 97165; 97530; 97535; 99285; A9270; C1713; C1769; G0008; G0378; J0690; J1100; J1170; J1650; J2250; J2270; J2405; J2704; J3010; J7030; J7120

== ENCOUNTER 2021-06-18 11:46 | Emergency (ER) | payer MEDICARE, MEDICAID, SELFPAY ==
--- NOTE | ~2021-06-18 | XR_ITS ---
XR femur RT min 2V, XR knee RT 2V 06/18/2021 13:07 Indication: Status post fall. Right leg swelling. Procedure: 2 views right femur and 2 views right knee Comparison: No prior studies for comparison. Findings: There is a comminuted distal femoral metadiaphyseal fracture with dorsal displacement and a pproximately 15 degrees dorsal angulation. There is a probable nondisplaced patellar fracture. Mild o steoarthritis of the right hip. Moderate soft tissue swelling overlying the distal femur. Osteopenia. Impression: 1: Comminuted distal femoral metadiaphyseal fracture with dorsal displacement and angulation. 2: Probable nondisplaced patellar fracture. Reviewed, dictated and finalized at location A. ESTATE AGENCY LICENSEE Impression: 1: Comminuted distal femoral metadiaphyseal fracture with dorsal displacement a nd angulation. 2: Probable nondisplaced patellar fracture. Impression: 1: Comminuted distal femoral metadiaphyseal fracture with dorsal displacement a nd angulation. 2: Probable nondisplaced patellar fracture.
[2021-06-18 12:01] VITALS: BP 157/86; PULSE 65; RESP 18; TEMP 36.3; O2SAT 100
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
[2021-06-18] MEDS: PROMETHAZINE HCL 25 MG/ML AMPUL 12.5 MG IV PUSH (13:49)
[2021-06-18] MEDS: HYDROmorphone HCL INJ (*CRX) 1 MG/ML SYR 0.5 MG IV PUSH ×2 (13:49→15:08)
[2021-06-18 14:39] LABS: Glucose Point of Care 64 mg/dl (65-105)
[2021-06-18 14:40] VITALS: BP 133/60; PULSE 63; RESP 17; TEMP 36.1; O2SAT 100
[2021-06-18] MEDS: DEXTROSE 5%/LACTATED RINGERS 1,000 ML 100 ML IV CONT (14:48)
[2021-06-18] MEDS: DEXTROSE 50% 25 GM/50 ML SYRINGE IV PUSH (15:08)
[2021-06-18 15:32] LABS: Glucose Point of Care 132 mg/dl (65-105)
--- NOTE | 2021-06-18 15:45 | PC.NURSE ---
[facility] updated time of arrival - 1700
--- NOTE | 2021-06-18 19:34 | PC.NURSE ---
[facility] called and accepted transfer Trip #[id number] with 35 minute eta..updated to 1645, then 1700. Final arrival was 1745 per [facility] RN..Kelin .
--- NOTE | 2021-07-18 15:39 | PC.NURSE ---
LATE ENTRY This note is being entered to document information to the patient's record. The following information was omitted on [06/18/21], by [María Singh].Site verification to be R knee and leg pain and injury.
== END 2021-06-18 17:45 | disposition short-term general hospital (02) ==
PROVIDERS: Emergency Provider Emergency Medicine; PCP Nurse Practitioner
DX: S79.191A Other physeal fracture of lower end of right femur, initial encounter for closed fracture (principal); E16.2 Hypoglycemia, unspecified; M19.90 Unspecified osteoarthritis, unspecified site; Z89.511 Acquired absence of right leg below knee; G89.4 Chronic pain syndrome; H40.9 Unspecified glaucoma; M81.0 Age-related osteoporosis without current pathological fracture; W00.0XXA Fall on same level due to ice and snow, initial encounter
CPT/HCPCS: 51702; 73552; 73560; 82948; 96361; 96374; 96375; 96376; 99285; J1170; J2550; J7121

== ENCOUNTER 2022-04-14 17:53 | Emergency (ER) | payer MEDICARE, MEDICAID, SELFPAY ==
--- NOTE | ~2022-04-14 | XR_ITS ---
EXAM: XR femur RT min 2V, XR knee RT min 4V DATE: 04/14/2022 18:41 HISTORY: right leg pain ACUTE INSTABILITY IN PROSTHETIC . COMPARISON: 06/18/2021. FINDINGS: Decreased mineralization. Below-knee amputation. Intramedullary fixation daniel with interloc nydia proximal and distal screws. Multiple additional fixation screws in the distal femur. Old healed distal femoral fracture. No acute fracture or dislocation. No lytic or blastic lesion. Joint spaces a re maintained. No erosion or periosteal change. Soft tissues within normal limits. IMPRESSION: No acute osseous finding in the right femur or knee. Reviewed, dictated and finalized at location K. KER STOCKER IMPRESSION: No acute osseous finding in the right femur or knee.
[2022-04-14 17:56] VITALS: BP 154/75; PULSE 79; RESP 16; TEMP 36.9; O2SAT 98
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
[2022-04-14] MEDS: KETOROLAC 30 MG/ML VIAL (*BKC) IM (18:17)
== END 2022-04-14 19:51 | disposition home or self-care (01) ==
PROVIDERS: Emergency Provider Physician Assistant; PCP Nurse Practitioner
DX: M25.561 Pain in right knee (principal); I10 Essential (primary) hypertension; G89.4 Chronic pain syndrome; H40.9 Unspecified glaucoma; M19.90 Unspecified osteoarthritis, unspecified site; M81.0 Age-related osteoporosis without current pathological fracture; Z89.511 Acquired absence of right leg below knee
CPT/HCPCS: 73552; 73564; 96372; 99284; J1885

== ENCOUNTER 2022-04-25 10:11 | Outpatient (CLI) | payer MEDICARE, MEDICAID, SELFPAY ==
--- NOTE | ~2022-04-25 | CT_ITS ---
EXAMINATION: CT knee RT wo con DATE: 04/25/2022 10:31 INDICATION: Right knee pain. TECHNIQUE: Computed tomography (CT) of the right knee was performed without intravenous contrast. Aut omated exposure control and iterative reconstruction technique were employed. The dose-length product was 614.52 mGy-cm. COMPARISON: Right knee radiographs 04/14/2022 FINDINGS: There is an old healed fracture of distal femoral metaphysis. There is internal fixation of the femur with an antegrade intramedullary daniel and multiple screws. There is incongruence of the med ial trochlea. There is mild tricompartmental osteoarthritis of right knee. No knee joint effusion. Th ere are changes of [id number] amputation with well-corticated bone at the stumps of the tibia and fibula. There is fat stranding distal to the tibial stump anteriorly, consistent with inflammation v ersus scarring. IMPRESSION: 1. Below-knee amputation with normal cortication of the stumps of the tibia and fibula. 2. Mild right knee osteoarthritis. Reviewed, dictated and finalized at location A. R SUPERVISOR
== END 2022-04-25 10:12 | disposition home or self-care (01) ==
PROVIDERS: PCP Nurse Practitioner; Visit Provider Nurse Practitioner
DX: M17.11 Unilateral primary osteoarthritis, right knee (principal); Z89.511 Acquired absence of right leg below knee
CPT/HCPCS: 73700

== ENCOUNTER 2022-07-27 16:44 | Emergency (ER) | payer MEDICARE, MEDICAID, SELFPAY ==
--- NOTE | ~2022-07-27 | CT_ITS ---
EXAMINATION: CT brain wo con DATE: 07/27/2022 17:18 INDICATION: Head injury. TECHNIQUE: Computed tomography (CT) of the head was performed without intravenous contrast. The dose- length product was 605.33 mGy-cm. Automated exposure control and iterative reconstruction technique w ere employed. COMPARISON: CT dated 08/30/2019 FINDINGS: Mild generalized atrophy, commensurate with age. There are scattered mild periventricular a nd subcortical white matter changes, most likely related to small vessel ischemic disease (microangio hunter). There is a left orbital prosthesis. No ventriculomegaly or midline shift. Basilar cisterns ar e patent. No acute intracranial hemorrhage, infarction, mass or mass effect. There is intracranial at herosclerosis.. IMPRESSION: 1. No acute intracranial abnormality. 2: Chronic age-related findings. Reviewed, dictated and finalized at location A.
[2022-07-27 16:44] VITALS: BP 150/69; PULSE 117; RESP 18; TEMP 37.3; O2SAT 97
[2022-07-27 17:10] LABS: Basophils Absolute Auto 0.1 K/mm3 (0.0-0.1); Basophils Percent Auto 0.5 % (0.2-1.2); Eosinophils Percent Auto 0.2 % (0-4.4); Hematocrit 43.8 % (37.0-47.0); Hemoglobin 14.8 g/dL (12.0-15.0); Immature Granulocyte Absolute 0.02 K/mm3 (0.00-0.031); Immature Granulocyte Percent A 0.2 % (0-0.5); Lymphocytes Absolute Auto 1.11 K/mm3 (0.9-3.2); Lymphocytes Percent Auto 11.3 % (18.3-44.2); Mean Corpuscular HGB Conc 33.8 g/dl (32-36); Mean Corpuscular Hemoglobin 28.5 pg (26-34); Mean Corpuscular Volume 84.2 fl (80-100); Monocytes Absolute Auto 1.1 K/mm3 (0.1-0.6); Monocytes Percent Auto 11.3 % (2.6-8.5); Neutrophils Absolute Auto 7.5 K/mm3 (1.3-6.7); Neutrophils Percent Auto 76.5 % (45.5-73.1); Platelet Count Result 322 k/mm3 (150-375); White Blood Count 9.8 K/mm3 (4.5-10.0)
[2022-07-27 17:24] LABS: Alanine Aminotransferase 122 U/L (6-35); Albumin Level 4.2 g/dL (3.5-5.1); Alkaline Phosphatase 54 U/L (38-126); Anion Gap 16 mmol/L (8-16); Aspartate Amino Transferase 129 U/L (14-36); Blood Urea Nitrogen 20 mg/dL (7-17); Calcium 8.7 mg/dL (8.4-10.2); Carbon Dioxide 17 mmol/L (22-30); Chloride 101 mmol/L (98-107); Estimated Glomerular Filt Rate > 60; Glucose 136 mg/dL (65-110); Lipase 74 U/L (23-300); Potassium 4.1 mmol/L (3.4-5.0); Sodium 134 mmol/L (137-145)
[2022-07-27] MEDS: ONDANSETRON INJ 4 MG/2 ML VIAL IV PUSH ×2 (17:43→19:34)
[2022-07-27] MEDS: SODIUM CHLORIDE 0.9% IV 1,000 ML 999 ML IV CONT ×2 (17:43→20:00)
[2022-07-27 17:48] VITALS: PULSE 112; RESP 18; O2SAT 100
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
[2022-07-27 17:57] LABS: Ethanol 96 mg/dL (<10)
[2022-07-27 18:19] LABS: Prothrombin Time 12.9 Seconds (11.1-14.7)
[2022-07-27 18:20] LABS: Partial Thromboplastin Time 24.3 SECONDS (22.3-36.8)
[2022-07-27 19:19] VITALS: BP 111/69; PULSE 105; RESP 17; O2SAT 94
[2022-07-27] MEDS: BELLADONNA ALK/PHENOB ELIX 10 ML, MAG HYDROX/ALUMINUM HYD/SIMETH 30 ML, LIDOCAINE HCL 2... PO (19:33)
[2022-07-27] MEDS: ACETAMINOPHEN 500 MG TABLET 1000 MG PO (19:35)
[2022-07-27 21:14] VITALS: BP 103/57; PULSE 99; RESP 13; O2SAT 95
[2022-07-27 23:33] VITALS: BP 110/54; PULSE 88; RESP 16; O2SAT 98
== END 2022-07-27 23:33 | disposition home or self-care (01) ==
PROVIDERS: Emergency Provider Emergency Medicine; PCP Nurse Practitioner
DX: F10.10 Alcohol abuse, uncomplicated (principal); G44.209 Tension-type headache, unspecified, not intractable; K29.70 Gastritis, unspecified, without bleeding; I10 Essential (primary) hypertension; G89.4 Chronic pain syndrome; H40.9 Unspecified glaucoma; M17.11 Unilateral primary osteoarthritis, right knee; M81.0 Age-related osteoporosis without current pathological fracture; Y90.4 Blood alcohol level of 80-99 mg/100 ml; Z89.511 Acquired absence of right leg below knee
CPT/HCPCS: 36415; 70450; 80053; 80307; 83690; 85025; 85610; 85730; 96361; 96374; 96376; 99284; A9270; J2405; J7030

== ENCOUNTER 2022-11-23 04:15 | Day surgery (SDC) | payer MEDICARE, MEDICAID, SELFPAY ==
[2022-11-15 15:08] VITALS: BMI 22.3
[2022-11-23 11:36] VITALS: BP 130/57; PULSE 63; RESP 16; TEMP 36.6; O2SAT 100
[2022-11-23] MEDS: LACTATED RINGERS 1,000 ML 150 ML IV CONT (11:46)
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
[2022-11-23 13:09] VITALS: BP 87/52; PULSE 56; RESP 16; O2SAT 96
[2022-11-23 13:18] VITALS: BP 88/49; PULSE 51; RESP 16; O2SAT 96
[2022-11-23 13:28] VITALS: BP 93/54; PULSE 57; RESP 16; O2SAT 97
== END 2022-11-23 13:42 | disposition home or self-care (01) ==
PROVIDERS: PCP Family Medicine; Visit Provider Internal Medicine Gastroenterology
PROC: 0DJD8ZZ Inspection of Lower Intestinal Tract, Via Natural or Artificial Opening Endoscopic (ICD-10-PCS; CPT 45378; principal; 2022-11-23 12:30)
DX: Z12.11 Encounter for screening for malignant neoplasm of colon (principal); Z86.010 Personal history of colon polyps; K57.30 Diverticulosis of large intestine without perforation or abscess without bleeding; I10 Essential (primary) hypertension; H40.9 Unspecified glaucoma
CPT/HCPCS: G0105; J2704; J7120

== ENCOUNTER 2023-03-19 09:51 | Outpatient (CLI) | payer MEDICARE, MEDICAID, SELFPAY ==
--- NOTE | ~2023-03-19 | MM_ITS ---
EXAMINATION: MM screening darren BI w fercho HISTORY: Screening TECHNIQUE: Craniocaudal and mediolateral oblique 3-D tomosynthesis images were obtained and synthetic 2-D images were generated. CAD analysis was submitted and interpreted. COMPARISON: 07/03/2018 BREAST PARENCHYMAL COMPOSITION: Breast composed of scattered areas of fibroglandular density FINDINGS: There are developing nodular asymmetries laterally in the left breast on CC view and superi cherelle in the right breast on MLO view IMPRESSION: 1. Developing bilateral breast asymmetries. 2. Additional mammographic views and possible breast ultrasound are recommended. BI-RADS Category 0: Incomplete: Needs additional imaging evaluation. Reviewed, dictated and finalized at location A. LY CHAIN PROJECT MANAGER IMPRESSION: 1. Developing bilateral breast asymmetries. 2. Additional mammographic views and possible breast ultrasound are recommended . BI-RADS Category 0: Incomplete: Needs additional imaging evaluation.
--- NOTE | ~2023-03-19 | DEXA_ITS ---
Bone Density Report Name: ZEN SANCHEZ Age: 68 Sex: Female Ethnicity: White Date of : 1955 Indication: osteopenia; monitoring treatment; prior fracture; postmenopausal Referring Provider: JAVIER WINCHESTER Study: Bone densitometry was performed. Exam Date: March 19, 2023 Accession number: [id number] Bone Density: Region BMD T-score Z-score Classification AP Spine(L1-L4) 0.919 -1.2 0.7 Osteopenia Femoral Neck (Left) 0.593 -2.3 -0.7 Osteopenia Total Hip (Left) 0.753 -1.6 -0.2 Osteopenia World Health Organization criteria for BMD impression classify patients as: Normal (T-score at or above -1.0), Osteopenia (T-score between -1.0 and -2.5), or Osteoporosis (T-score at or below -2.5). 10-year Fracture Risk: FRAX not reported because: Prior hip or vertebral fracture Treated for osteoporosis Previous Exams: Region Exam Age BMD T-score BMD Change BMD Change Date g/cm2 vs Baseline vs Previous AP Spine (L1-L4) 03/19/2023 68 0.919 -1.2 0.038 (4.3%)* 0.038 (4.3%)* 08/12/2018 63 0.881 -1.5 Total Hip(Left) 03/19/2023 68 0.753 -1.6 -0.042 (-5.3%) -0.042 (-5.3%) 08/12/2018 63 0.795 -1.2 *Denotes significance at 95% confidence level, LSC for AP Spine = 0.022 g/cm2, LSC for Total Hip = 0.027 g/cm2 Clinical Information Provided by Patient: Have had a previous hip or vertebral fracture Has had a low trauma fracture Is being treated for osteoporosis Has used the following medications: Fosamax (i.e. alendronate) Patient maximum height was 64 Menopause Age: 53 Does not regularly consume dairy products Drinks caffeinated beverages Onset of menses at age 17 Number of children 3 Impression: The patient has low bone mass, based on the Left Femoral Neck T-score. The patient has risk factors, including: previous fracture. The BMD for the Total Hip(Left) decreased, changing by -5.3% since the last DXA exam. Discussion: SIGNIFICANT BONE LOSS OBSERVED. Adherence to therapy (including calcium and vitamin D intake) should be assessed. If compliance is not a factor, review management and exclusion of secondary causes of bone loss. It is important to ask patients whether they are taking their medications and to encourage continued and appropriate compliance with their osteoporosis therapies to reduce fracture risk. It is also important to review their risk factors and encourage appropriate calcium and vitamin D intakes, exercise, fall prevention and other lifestyle measures. Follow-Up: Consider a repeat BMD and Vertebral Fracture
== END 2023-03-19 09:52 | disposition home or self-care (01) ==
LOC: ANHIMG 09:55
PROVIDERS: PCP Family Medicine; Visit Provider Family Medicine
DX: Z12.31 Encounter for screening mammogram for malignant neoplasm of breast (principal); R92.8 Other abnormal and inconclusive findings on diagnostic imaging of breast; M85.89 Other specified disorders of bone density and structure, multiple sites; Z78.0 Asymptomatic menopausal state
CPT/HCPCS: 77063; 77067; 77080

== ENCOUNTER 2023-04-08 11:51 | Outpatient (CLI) | payer MEDICARE, MEDICAID, SELFPAY ==
--- NOTE | ~2023-04-08 | MMUS_ITS ---
EXAMINATION: MM diagnostic darren BI w fercho, US breast BI limited HISTORY: Developing bilateral asymmetries reported on 03/19/2023 screening mammogram TECHNIQUE: Additional 3-D tomosynthesis images of both breasts were performed and synthetic 2-D image s were generated. CAD analysis was submitted and interpreted. High resolution bilateral upper outer a nd lower-outer quadrant breast breast ultrasound was performed. COMPARISON: 03/19/2023 bilateral screening mammogram FINDINGS: MAMMOGRAPHIC FINDINGS: No definite reproducible suspicious mass is noted. No apparent architectural distortion. No malignant calcification, skin thickening or retraction of either breast is detected. ULTRASOUND: No suspicious mass or shadowing either breast is evident. IMPRESSION: 1. Probable benign fibroglandular asymmetry is 2. 6 month diagnostic bilateral mammogram follow-up is recommended, with ultrasound if required BI-RADS category 3, probably benign findings. Reviewed, dictated and finalized at location A. RTMENT CLINICIAN IMPRESSION: 1. Probable benign fibroglandular asymmetry is 2. 6 month diagnostic bilateral mammogram follow-up is recommended, with ultras ound if required BI-RADS category 3, probably benign findings.
== END 2023-04-08 11:52 | disposition home or self-care (01) ==
LOC: ANHIMG 11:52
PROVIDERS: PCP Family Medicine; Visit Provider Family Medicine
DX: R92.8 Other abnormal and inconclusive findings on diagnostic imaging of breast (principal)
CPT/HCPCS: 76642; 77062; 77066; G0279

== ENCOUNTER 2023-10-02 08:54 | Outpatient (CLI) | payer MEDICARE, SELFPAY ==
--- NOTE | ~2023-10-02 | MM_ITS ---
EXAMINATION: MM diagnostic darren BI w fercho HISTORY: Follow-up bilateral breast asymmetries TECHNIQUE: Additional 3-D tomosynthesis images of the breasts were performed and synthetic 2-D images were generated. CAD analysis was submitted and interpreted. COMPARISON: Comparison to multiple prior studies sequentially, with oldest reviewed study dated 07/03. BREAST PARENCHYMAL COMPOSITION: Not dense: There are scattered areas of fibroglandular density. FINDINGS: Bilateral breast asymmetries in the upper outer quadrants are stable. No new masses, calcif ications or architectural distortion in either breast to suggest malignancy. IMPRESSION: 1. No mammographic evidence for malignancy in either breast. 2. Routine yearly screening mammogram and regular clinical breast examination are recommended. BI-RADS Category 1: Negative Reviewed, dictated and finalized at location A. IMPRESSION: 1. No mammographic evidence for malignancy in either breast. 2. Routine yearly screening mammogram and regular clinical breast examination a re recommended. BI-RADS Category 1: Negative
== END 2023-10-02 08:55 | disposition home or self-care (01) ==
LOC: ANHIMG 08:56
PROVIDERS: PCP Family Medicine; Visit Provider Family Medicine
DX: R92.8 Other abnormal and inconclusive findings on diagnostic imaging of breast (principal)
CPT/HCPCS: 77062; 77066; G0279

== ENCOUNTER 2023-12-19 02:51 | Day surgery (SDC) | payer MEDICARE, SELFPAY ==
[2023-12-17 11:37] VITALS: BMI 22.0
--- NOTE | 2023-12-17 11:44 | PC.NURSE ---
Report to the Outpatient Waiting Room, entrance under the green pavilion located off [facility], at time _0600_ on date _[id number]_. Planned Procedure Time: _0730_. Time changes happen often and if your time is changed the preop area will call you the afternoon before. - You and your visitor will be asked to self-screen and do not enter if you have any COVID symptoms. - A mask is optional within the hospital at this time. Patients may have clear liquids (water, carbonated beverages, clear teas, apple juice) until 3 hours prior to surgery with a maximum of 20 ounces. - No food from midnight until time of surgery Take the following medications with a SIP of water the morning of surgery: ____eye drops and nose spray OK DO NOT STOP ANY OF YOUR OTHER PRESCRIPTION MEDICATIONS PRIOR TO SURGERY ?EXCEPT THE FOLLOWING Medications to discontinue per physician Co H35 Date to take last dose____Stop now. Please no make-up, nail turkish, hairspray, perfume, deodorant, or body powder the day of surgery. No jewelry (including any body piercings) or valuables the day of surgery, leave them at home. Please take a shower or bath the night before, or the morning of, surgery with an antibacterial soap. Wear comfortable, loose fitting clothing. - Jewelry must be removed prior to entering the operating room. Rings and piercings that are not removed may be cut off. - The hospital will not accept responsibility for valuables. - Please leave all valuables, including medications, at home the day of surgery. If you are going home after surgery, a licensed fast food delivery driver must drive you home. - NO public transportation without another adult if you receive anesthesia. - We recommend that an adult stay with you for 24 hours following discharge. - We also recommend that you do not drive, make important decision, drink alcoholic beverages, or take any drugs that were not prescribed by your health care provider for at least 24 hours after your discharge time. Follow any additional instructions given to you from your surgeon. If you or anyone in your household have experienced Covid symptoms in the past week, please notify your surgeon or the nurse liaison at the phone number below for possible testing. Telephone instructions given to _Rachellee__and asked if any additional questions and then verbalized understanding. Patient advised to call surgeon office or pre surgery nurse liaison [phone] if any additional questions.
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
[2023-12-19] VITALS (10 sets, daily range): BP systolic 105–130; BP diastolic 57–85; PULSE 55–100; RESP 13–20; TEMP 36.1–36.4; O2SAT 94–100; BMI 22.1
--- NOTE | ~2023-12-19 | XR_ITS ---
EXAMINATION: XR surgery orthopedic DATE: 12/19/2023 09:09 INDICATION: Painful right knee hardware. TECHNIQUE: 4 intraoperative fluoroscopic views of right lower limb were obtained. I was not present. Fluoroscopy exposure time was 63 seconds. COMPARISON: Right femur radiographs 10/02/2023 FINDINGS: There is an old healed fracture of distal femur with internal fixation with an intramedulla ry daniel. The distal interlocking screws have been removed. IMPRESSION: 1. Internal fixation of right femur with removal of the distal interlocking screws. Reviewed, dictated and finalized at location A. IMPRESSION: 1. Internal fixation of right femur with removal of the distal interlocking scr ews.
[2023-12-19] MEDS: LACTATED RINGERS 1,000 ML 30 ML IV CONT ×2 (06:30→09:24)
--- NOTE | 2023-12-19 06:42 | ECG_ITS ---
Test Date: 2023-12-19 07:01:09 Measurements Intervals Riparius Rate: 61 P: 5 OK: 121 QRS: 63 QRSD: 77 T: 84 QT: 429 QTc: 435 Interpretive Statements SINUS RHYTHM LOW QRS VOLTAGE POOR R-WAVE PROGRESSION ABNORMAL ELECTROCARDIOGRAM No previous ECG available for comparison Electronically Signed On 12-19-2023 07:26:52 CDT by Ady Orozco M.D.
[2023-12-19] MEDS: ACETAMINOPHEN 500 MG TABLET 1000 MG PO (06:52)
[2023-12-19] MEDS: KETOROLAC 15 MG/ML VIAL (*BKC) IV PUSH (06:53)
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
--- NOTE | 2023-12-19 07:20 | WPDHPUPDATE1 ---
History and Physical Update Update Date/Time: 12/19/23 07:20 History and Physical has been reviewed, including an updated exam of the patient. There are NO changes in the patient's condition. Risks, benefits, and alternatives have been discussed and questions answered. Patient agrees to proceed with procedure.
[2023-12-19] MEDS: ceFAZolin 2 GM/D5W 50 ML 2 GM/50 ML BAG IVPB (07:27)
[2023-12-19] MEDS: methylPREDNISolone ACETATE 80 MG/ML VIAL IM (09:06)
[2023-12-19] MEDS: BUPivacaine HCL 0.5% 10 ML AMP 20 ML INFILTRATE (09:06)
--- NOTE | 2023-12-19 09:33 | W.PM.PROC2 ---
Procedure Note - Detailed Date of Procedure 12/19/23 Pre-op Diagnosis Rt knee painful hardware,left shoulder arthritis Post-op Diagnosis Same Procedure Performed Removal of hardware, deep, right knee. Intra-articular injection left shoulder. 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 Screws were prominent and causing pain with her prosthesis. She for operative treatment. Also with severe left shoulder arthritis. Indicated for shoulder injection while under anesthesia. Findings Distal femoral locking screws, lateral and 1 screw medial. Left shoulder glenohumeral joint and subacromial joint from posterior with 80 mg Depo-Medrol, 2 cc 0.5% Marcaine. Description of Procedure Patient identified in the preoperative holding. Informed consent given. Operative extremity marked. Patient received intravenous antibiotics. Patient brought to the operating room where underwent general anesthetic by anesthesia team. Positioned supine on operating room table. Time-out performed confirming the patient, site of the surgery and the plan. Right knee prepped and draped usual sterile surgical fashion using a ChloraPrep skin solution. Leg and knee exsanguinated and thigh tourniquet inflated to 250 mmHg. Image intensification was brought in to help localize the deep screw fixation in the distal femur. Utilizing 1 the previous incisions and longitudinal incision was made over the lateral aspect of the distal femur with a 15 blade knife. Hemostasis controlled electrocautery. Iliotibial band incised in line with the skin incision and retractors placed. Working through this opening dissection was carried down the lateral femur. The lateral screws were removed in succession. There was 1 screw going from medial to lateral. This was localized with the image intensification and I small incision was made over this with a 15 blade knife in longitudinal fashion. Dissection carried down to the screw and the 1 medial screw was removed. A separate more proximal screw was also localized small incision with 15 blade knife made over this. Blunt dissection down to the screw which was then removed. All of the distal screw fixation was removed and verified with image intensification. Osteoporotic bone was encountered on the distal lateral aspect of the femur after removal hardware. This was thoroughly irrigated and packed cancellous chips allograft bone. Thorough irrigation once again fascia repaired with 2-0 Vicryl interrupted suture. Subcutaneous tissue repaired with 3-0 Monocryl interrupted suture and all of the skin incisions were repaired with 3-0 Monocryl suture. Sterile dressing applied. Left shoulder then prepped with alcohol prep solution from the posterior aspect. 22 gauge needle used to penetrate the posterior capsule injection of 80 mg Depo-Medrol and 2 cc of Marcaine 0.5% into the left shoulder joint. Sterile dressing applied. The patient was then woken from anesthesia, extubated and taken to the recovery room in stable condition. All sponge, needle, instrument counts were correct at the end of the case. Estimated Blood Loss 10 Tourniquet Time Total Tourniquet Time: 85 Drains No Packing No Pathology None sent Complications None Condition Stable Disposition PACU [facility] Billing Surgery - Charge Forward: Surgery Billing ([id number], [id number])
[2023-12-19] MEDS: fentaNYL CITRATE INJ (*CRX) 100 MCG/2 ML VIAL 25 MCG IV PUSH ×5 (09:41→10:25)
[2023-12-19] MEDS: oxyCODONE HCL (*CRX) 5 MG TAB IR PO (10:50)
== END 2023-12-19 11:49 | disposition home or self-care (01) ==
PROVIDERS: PCP Family Medicine; Visit Provider Orthopaedic Surgery
PROC: (CPT 20680; principal; 2023-12-19 07:30)
DX: T84.84XA Pain due to internal orthopedic prosthetic devices, implants and grafts, initial encounter (principal); M19.012 Primary osteoarthritis, left shoulder; F41.9 Anxiety disorder, unspecified; I10 Essential (primary) hypertension; G89.29 Other chronic pain; M25.512 Pain in left shoulder; F32.A Depression, unspecified; M17.11 Unilateral primary osteoarthritis, right knee; M81.0 Age-related osteoporosis without current pathological fracture; F43.10 Post-traumatic stress disorder, unspecified; Z79.83 Long term (current) use of bisphosphonates; Z98.890 Other specified postprocedural states; Z98.51 Tubal ligation status; Z89.511 Acquired absence of right leg below knee; Z86.010 Personal history of colon polyps; Z80.1 Family history of malignant neoplasm of trachea, bronchus and lung; Z87.81 Personal history of (healed) traumatic fracture; Y83.8 Other surgical procedures as the cause of abnormal reaction of the patient, or of later complication, without mention of misadventure at the time of the procedure
CPT/HCPCS: 20680 ×2; 20610; 93005; 99199; A9270; C1713; J0690; J1010; J1100; J1170; J1885; J2250; J2405; J2704; J3010; J7120

== ENCOUNTER 2024-10-13 10:13 | Outpatient (CLI) | payer MEDICARE, SELFPAY ==
--- NOTE | ~2024-10-13 | MM_ITS ---
PROCEDURE: MM SCREENING ANGIE BI W SANDY INDICATION: Asymptomatic, referred for screening mammogram COMPARISON: 03/19/2023 and 07/03/2018 TECHNIQUE: Digital breast tomosynthesis craniocaudal and mediolateral oblique views of Both breasts w ere obtained with computer-aided detection to assist in interpretation of the study. FINDINGS: There are scattered areas of fibroglandular density. No focal dominant mass, architectural distortion, or suspicious microcalcifications are identified. There are no features to suggest malignancy. IMPRESSION: No evidence of malignancy in the breast. Recommend continued screening mammography BI-RADS 1, NEGATIVE Reviewed, dictated and finalized at location B.
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
--- OUTSIDE RECORDS SUMMARY | 2024-10-13 10:31 | XMS_ITS | Encounter Summary ---
Author Organization [facility] Address [address] [place] [address] Care Team Providers Care In Flight Refueling Operator Name Role Phone Unavailable Primary Care Provider Unavailabl e Encounter Details Date Type Department Care Team (Late st Contact Info) Description 09/02/2019 Ophth Exam [facility] [address] [place] [address] Wilman Lim MD [address] [facility] [address] DEPT OF OPHTHALMOLOGY [place], [place] Social History Tobacco Use Types Packs/Day Years Used Date Smoking Tobacco: Never Smokeless Tobacco: Never Alcohol Use Standard Drinks/Week Comments Yes 0 (1 standard drink = 0.6 oz pur e alcohol) occasionally Comments Unknown Sex and Gender Information Value Date Recorded Sex Assigned at Not on file Legal Sex Female 9:02 PM CDT Gender Identity Not on file Sexual Orientation Not on file documented as of this encounter Plan of Treatment Not on file documented as of this encounter Visit Diagnoses Not on filedocumented in this encounter Additional Health Concerns Infection Onset Date Last Indicated Resolved Time COVID-19 Under Investigation 09/03/2019 09/03/2019 09/04/2019 6:30 AM CDT documented as of this encounter
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
== END 2024-10-13 10:14 | disposition home or self-care (01) ==
PROVIDERS: PCP Family Medicine; Visit Provider Family Medicine
DX: Z12.31 Encounter for screening mammogram for malignant neoplasm of breast (principal)
CPT/HCPCS: 77063; 77067